=== PATIENT | male | born 1955 | race Asian ===

== ENCOUNTER → 2016-08-09 | Outpatient (CLI) | payer OTHER ==
--- NOTE | 2016-08-09 14:16 | DX ---
PA and Lateral Chest X-ray 1225 hours History: Possible pneumonia.. Findings: Heart size and pulmonary vasculature are normal. The lungs are clear without infiltrates or effusions. There is no pneumothorax. Healed fractures seen posterior lateral left 4th rib. Impression: No active cardio pulmonary disease seen. These findings were discussed by telephone with Sandra Cota.
== END ==
LOC: BMCIMAGING 12:26
PROVIDERS: ATTEND Nurse Practitioner Adult Health
DX: R05 Cough (principal)

== ENCOUNTER → 2018-05-21 | Outpatient (CLI) | payer BC | LOC: BMCIMAGING 09:12 | PROVIDERS: ATTEND Internal Medicine | DX: M81.0 Age-related osteoporosis without current pathological fracture (principal); Z94.0 Kidney transplant status ==